=== PATIENT | female | born 1995 | race Hispanic/Latino ===

== ENCOUNTER 2020-05-03 09:51 | Emergency (ER) | payer SELFPAY ==
[2020-05-03] MEDS ORDERED: Bacitracin 1 PK ONE (10:22)
[2020-05-03] MEDS ORDERED: Lidocaine 1% (PF) 30 ML VIAL ONE (10:22)
== END 2020-05-03 11:05 | disposition home or self-care (01) ==
LOC: NAV ERS 09:51
DX: S61.512A Laceration without foreign body of left wrist, initial encounter (principal); W26.0XXA Contact with knife, initial encounter
CPT/HCPCS: 12002; J2001